=== PATIENT | female | born 1995 ===

== ENCOUNTER 2024-12-11 10:49 | Emergency (ER) | payer SELFPAY ==
[2024-12-11 11:32] VITALS: BP 128/93; PULSE 77; RESP 16; TEMP 36.5; O2SAT 100
--- NOTE | 2024-12-11 16:03 | PC.NURSE ---
Patient amb out of ED reporting she can't wait any longer. Patient in NAD.
== END 2024-12-11 16:09 | disposition left against medical advice (07) ==
LOC: ANHED 16:07
DX: M79.605 Pain in left leg (principal)
CPT/HCPCS: 99199